=== PATIENT | male | born 1990 | race Caucasian/White ===

== ENCOUNTER → 2019-01-21 | Outpatient (CLI) | payer BC ==
--- NOTE | 2019-01-21 17:38 | US ---
EXAM DESCRIPTION: Renal: Ultrasound. CLINICAL HISTORY: 28 years Male HTN COMPARISON: None TECHNIQUE: Transcutaneous scanning: Two-dimensional and Doppler modes. FINDINGS: Right kidney measures 10 x 5.1 x 4.5 cm; mid-renal cortical thickness 12 mm . Normal echogenicity of the cortex. No hydronephrosis No echogenic stones. Smooth contour of the kidney with no perinephric fluid. Normal vascularity. Proximal ureter not visualized. Left kidney measures 9.5 x 4.7 x 4.3 cm; mid-renal cortical thickness 15 mm.. Normal echogenicity of the cortex. No hydronephrosis. No echogenic stones. Smooth contour of the kidney with no perinephric fluid. Normal vascularity.. Proximal ureter not visualized. Urinary bladder not visualized. Abdominal aorta: not measured.. Left adrenal measured 2.0 x 1.9 x 1.6 cm. Right adrenal 1.9 x 1.8 x 1.4 cm. No cysts or calcifications. IMPRESSION: 1. Bilateral kidneys normal size and normal echogenicity. No stones hydronephrosis or perirenal fluid. 2. Bilateral adrenal glands normal size with no cysts or calcifications. Electronically signed by: Kyle Smith MD 01/21/2019 5:37 PM CDT
== END ==
LOC: US 07:57
PROVIDERS: ATTEND Family Medicine
DX: I10 Essential (primary) hypertension (principal)